=== PATIENT | male | born 1980 | race Two or more races ===

== ENCOUNTER 2020-10-31 16:22 | Emergency (ER) | payer MEDICAID, OTHER ==
--- NOTE | 2020-10-31 17:31 | EDM.PDOC ---
ED HPI GENERAL MEDICAL PROBLEM - General Chief Complaint: Genitourinary Problem Stated Complaint: GENITAL SORES/WANT STI TEST Time Seen by Provider: 10/31/20 17:30 - History of Present Illness INITIAL COMMENTS - FREE TEXT/NARRATIVE: 40-year-old male presents to the emergency room for STD testing. For the last couple of weeks the patient has had a worsening rash on his genitalia. It seems to be getting worse over time he tries to keep the area clean but this may be making it worse. Patient had unprotected intercourse about 2 months ago the patient has not had any fevers or chills. He has had really no burning or frequency with urination he gets a little bit of discharge. However there is a sensation that everything is tight trying to void. - Related Data Allergies Allergy/AdvReac Type Severity Reaction Status Date / Time No Known Allergies Allergy Verified 10/31/20 16:39 Home Meds: Home Meds Doxycycline Hyclate 100 mg PO BID #28 capsule 10/31/20 [Rx] Mupirocin Calcium [Bactroban] 15 gm TP ASDIRECTED #1 cream..g. 10/31/20 [Rx] Past Medical History - Past Health History Medical/Surgical History: Denies Medical/Surgical History Social & Family History - Tobacco Use Tobacco Use Status *Q: Current Every Day Tobacco User Years of Tobacco use: 15 Packs/Tins Daily: 0.3 - Caffeine Use Caffeine Use: Reports: None - Recreational Drug Use Recreational Drug Use: No ED ROS GENERAL - Review of Systems Review Of Systems: See Below Constitutional: Reports: No Symptoms HEENT: Reports: No Symptoms Respiratory: Reports: No Symptoms Cardiovascular: Reports: No Symptoms GI/Abdominal: Reports: No Symptoms : Reports: Other (See HPI) ED EXAM, RENAL/ - Physical Exam Exam: See Below Exam Limited By: No Limitations General Appearance: Alert, No Apparent Distress Respiratory/Chest: No Respiratory Distress, Lungs Clear, Normal Breath Sounds Cardiovascular: Regular Rate, Rhythm, No Edema, No Murmur GI/Abdominal: Normal Bowel Sounds, Soft, Non-Tender (Male) Exam: Other (Patient has extensive erythema over the glans and distal penis with lots of exudative material with some adhesions developing between the base of the glans and the shaft he has a mild hypospadias) Back Exam: Normal Inspection. No: CVA Tenderness (L), CVA Tenderness (R) Course - Vital Signs Last Recorded V/S: Last Vital Signs Temp 36.4 C 10/31/20 16:42 Pulse 88 10/31/20 16:42 Resp 16 10/31/20 16:42 BP 147/85 H 10/31/20 16:42 Pulse Ox 97 10/31/20 16:42 - Orders/Labs/Meds Orders: Active Orders 24 hr Category Date Time Status CULTURE URINE [RM] Stat Lab 10/31/20 16:45 Received HSV 1/2 PCR [REF] Stat Lab 10/31/20 18:36 Received TREPONEMA PALLIDUM ANTIBODIES [REF] Stat Lab 10/31/20 18:36 Received UA W/MICROSCOPIC [URIN] Stat Lab 10/31/20 16:45 Results Labs: Laboratory Tests 10/31/20 10/31/20 Range/Units 16:45 16:45 Urine Color Yellow (Yellow) Urine Appearance Clear (Clear) Urine pH 6.0 (5.0-8.0) Ur Specific [place] 1.015 (1.005-1.030) Urine Protein Negative (Negative) Urine Glucose (UA) Negative (Negative) Urine Ketones Negative (Negative) Urine Occult Blood Negative (Negative) Urine Nitrite Negative (Negative) Urine Bilirubin Negative (Negative) Urine Urobilinogen 0.2 (0.2-1.0) Ur Leukocyte Esterase Trace H (Negative) U Hyaline Cast (Auto) Cancelled Urine WBC Clumps Cancelled Ur Epithelial Cells Cancelled Ur Squamous Epith Cells Cancelled Ur Transition Epith Cell Cancelled Ur Renal Epithelial Cell Cancelled [place] Biurate Crystals Cancelled Calcium Carbonate Cryst Cancelled Calcium Phosphate Cryst Cancelled Calcium Oxalate Crystal Cancelled Leucine Crystals Cancelled Cystine Crystals Cancelled Uric Acid Crystals Cancelled Triple Phos Crystals Cancelled Sodium Urate Crystals Cancelled Tyrosine Crystals Cancelled Other Crystals Cancelled Amorphous Sediment Cancelled Epithelial Casts Cancelled Fatty Casts Cancelled Fine Granular Casts Cancelled Coarse Granular Casts Cancelled Waxy Casts Cancelled Broad Casts Cancelled RBC Casts Cancelled WBC Casts Cancelled Urine Other Cancelled Urine Trichomonas Cancelled Urine Yeast Cancelled Ur Yeast w Hyphae Cancelled Urine Yeast (Budding) Cancelled Ur Oval Fat Bodies Cancelled Urinalysis Comment Cancelled C trachomatis DNA (PCR) Not detected N gonorrhoeae DNA (PCR) Not detected - Re-Assessments/Exams Free Text/Narrative Re-Assessment/Exam: 10/31/20 19:48 Patient has a severe balanitis and be started on Bactroban and doxycycline. Departure - Departure Time of Disposition: 19:53 Disposition: Home, Self-Care 01 Clinical Impression: Balanitis - Discharge Information Referrals: PCP,Not In Area [Primary Care Provider] - Forms: ED Department Discharge Additional Instructions: Return to the emergency room with any questions problems or worsening symptoms. Your prescriptions have been sent to [facility] in the [facility]. You have been started on doxycycline take 1 twice daily for 14 days. You have also been started on a cream that you will use over the affected area 2-3 times a day for a week. Sepsis Event Note (ED) - Evaluation Sepsis Screening Result: No Definite Risk - Focused Exam Vital Signs: Vital Signs Temp Pulse Resp BP Pulse Ox 10/31/20 16:42 36.4 C 88 16 147/85 H 97 - My Orders Last 24 Hours: My Active Orders 10/31/20 16:45 CULTURE URINE [RM] Stat UA W/MICROSCOPIC [URIN] Stat 10/31/20 18:36 HSV 1/2 PCR [REF] Stat TREPONEMA PALLIDUM ANTIBODIES [REF] Stat - Assessment/Plan Last 24 Hours: My Active Orders 10/31/20 16:45 CULTURE URINE [RM] Stat UA W/MICROSCOPIC [URIN] Stat 10/31/20 18:36 HSV 1/2 PCR [REF] Stat TREPONEMA PALLIDUM ANTIBODIES [REF] Stat
[2020-10-31 19:36] LABS: C. TRACHOMATIS BY PCR NOT DETECTED; N. GONORRHOEAE BY PCR NOT DETECTED
== END 2020-10-31 20:07 | disposition home or self-care (01) ==
LOC: JD.ED 16:22
DX: N48.1 Balanitis (principal); Z72.0 Tobacco use
CPT/HCPCS: 36415; 81001; 86780; 87086; 87491; 87529; 87591; 99283